=== PATIENT | female | born 1985 | race Two or more races ===

== ENCOUNTER → 2024-03-07 | Outpatient (CLI) | payer MEDICAID | END | disposition home or self-care (01) | LOC: XYW 08:48 | PROVIDERS: ATTEND Student in an Organized Health Care Education/Training Program | DX: I51.7 Cardiomegaly (principal); R07.9 Chest pain, unspecified | CPT/HCPCS: 93306 ==

== ENCOUNTER → 2024-04-15 | Outpatient (CLI) | payer MEDICAID ==
[~2024-04-15] MED LIST: LIDOCAINE 2%HCL (LOCAL ANESTH.) INJ 10ml MDV ONE
[2024-04-15 10:22] VITALS: BP 136/88; PULSE 60; RESP 17
== END | disposition home or self-care (01) ==
LOC: XYW 10:03
PROVIDERS: ATTEND Student in an Organized Health Care Education/Training Program
DX: R07.9 Chest pain, unspecified (principal)
CPT/HCPCS: 93017; J2001; J2003